=== PATIENT | female | born 1995 | race Caucasian/White ===

== ENCOUNTER 2019-01-25 07:48 | Emergency (ER) | payer MEDICAID, OTHER ==
[2019-01-25 07:55] VITALS: BMI 34.0
[2019-01-25 08:04] VITALS: O2SAT 99
--- NOTE | 2019-01-25 08:27 | ED PDOC ---
Arrival/HPI - General Historian: Patient - History of Present Illness Narrative History of Present Illness (Text): 01/25/19 08:21 CC: Chest Pain and Left Upper Extremity Numbness HPI: 23 yo female w/ no significant past medical history comes to ED for evaluation of chest pain, neck pain, and left upper extremity numbness. Chest pain is reproducible on exam. Patient states the pain feels like stabbing pins in nature, localized to mid chest, denies diaphoresis, nausea, and vomiting. Patient states the pain started two days ago when she walk up from sleep uncomfortably. Patient complains of neck soreness when turning in certain directions. Patient complains of left upper extremity numbness but has motor strength intact although weak. Patient states she thought pain would go away and decided to go to work but pain persisted which is why she decided to come to emergency room. Reports no prior episodes. Took no medications at home for pain. Denies fevers, chills, headaches, lightheadedness, dizziness, constipation or diarrhea, and dyusria. Time/Duration: < week Symptom Onset: Sudden Symptom Course: Unchanged Quality: Stabbing Activities at Onset: Rest Context: Sitting <Melanie Calzada - Last Filed: 01/25/19 09:25> <Jackson Perez DO - Last Filed: 01/25/19 18:20> - General Chief Complaint: Chest Pain Time Seen by Provider: 01/25/19 07:49 Past Medical History - Provider Review Nursing Documentation Reviewed: Yes - Past History Past History: No Previous - Infectious Disease Hx of Infectious Diseases: None - Tetanus Immunization Tetanus Immunization: Up to Date - Past Medical History Past Medical History: No Previous - Cardiac Hx Cardiac Disorders: No - Pulmonary Hx Respiratory Disorders: No - Neurological Hx Neurological Disorder: No - HEENT Hx HEENT Disorder: No - Renal Hx Renal Disorder: No - Endocrine/Metabolic Hx Endocrine Disorders: No - Integumentary Hx Dermatological Disorder: No - Musculoskeletal/Rheumatological Hx Musculoskeletal Disorders: No - Gastrointestinal Hx Gastrointestinal Disorders: No - Genitourinary/Gynecological Hx Genitourinary Disorders: No - Psychiatric Hx Psychophysiologic Disorder: No Hx Post Traumatic Stress Disorder: No Hx Schizophrenia: No Hx Substance Use: No - Past Surgical History Past Surgical History: No Previous - Surgical History Hx Abdominal Aortic Aneurysm Repair: No - Anesthesia Hx Anesthesia: No Hx Anesthesia Reactions: No Hx Malignant Hyperthermia: No - Suicidal Assessment Feels Threatened In Home Enviroment: No <Melanie Calzada - Last Filed: 01/25/19 09:25> Family/Social History Family/Social History: No Known Family HX Smoking Status: Never Smoked Hx Alcohol Use: No Hx Substance Use: No Hx Substance Use Treatment: No <Melanie Calzada - Last Filed: 01/25/19 09:25> Allergies/Home Meds <Melanie Calzada - Last Filed: 01/25/19 09:25> <Jackson Perez DO - Last Filed: 01/25/19 18:20> Allergies/Adverse Reactions: Allergies No Known Allergies Allergy (Verified 01/25/19 07:55) Review of Systems - Review of Systems Constitutional: Normal Eyes: Normal. absent: Vision Changes ENT: Normal Respiratory: Normal. absent: SOB Cardiovascular: Normal, Chest Pain Gastrointestinal: Normal. absent: Abdominal Pain, Stool Changes, Constipation, Diarrhea, Nausea, Vomiting Genitourinary Female: Normal. absent: Dysuria Musculoskeletal: Neck Pain Skin: Normal. absent: Rash Neurological: Normal, Other (LUE numbness). absent: Headache, Dizziness, Facial Droop Endocrine: Normal. absent: Diaphoresis Psychiatric: Normal. absent: Anxiety <Melanie Calzada - Last Filed: 01/25/19 09:25> Physical Exam Vital Signs Reviewed: Yes Vital Signs Temp Pulse Pulse Resp BP Pulse Ox 01/25/19 08:04 70 01/25/19 08:01 98.0 F 75 16 124/105 H 99 Temperature: Afebrile Blood Pressure: Normal Pulse: Regular Respiratory Rate: Normal Appearance: Positive for: Well-Appearing, Non-Toxic, Comfortable. No: Ill-Appearing, Unkept, Uncomfortable Pain Distress: Mild Mental Status: Positive for: Alert and Oriented X 3 - Systems Exam Head: Present: Atraumatic, Normocephalic Pupils: Present: PERRL Extroacular Muscles: Present: EOMI Conjunctiva: Present: Normal Mouth: Present: Moist Mucous Membranes. No: Dry Respiratory/Chest: Present: Clear to Auscultation, Good Air Exchange. No: Respiratory Distress, Accessory Muscle Use, Wheezes, Decreased Breath Sounds Cardiovascular: Present: Regular Rate and Rhythm, Normal S1, S2. No: Murmurs, Irregular Rhythm Abdomen: Present: Normal Bowel Sounds. No: Tenderness, Distention, Rebound, Guarding Upper Extremity: Present: Normal Inspection, Normal ROM, Neurovascularly Intact, Norm 2-Pt Discrimination. No: Cyanosis, Edema, Tenderness, Swelling, Erythema Lower Extremity: Present: Normal Inspection. No: Edema Neurological: Present: GCS=15, CN II-XII Intact, Speech Normal Skin: Present: Warm, Dry, Normal Color. No: Rashes Psychiatric: Present: Alert, Oriented x 3, Normal Insight, Normal Concentration <Melanie Calzada - Last Filed: 01/25/19 09:25> Vital Signs Temp Pulse Pulse Resp BP Pulse Ox 01/25/19 09:09 98.6 F 79 19 127/99 H 99 01/25/19 08:04 70 01/25/19 08:01 98.0 F 75 16 124/105 H 99 <Jackson Perez DO - Last Filed: 01/25/19 18:20> Medical Decision Making ED Course and Treatment: 01/25/19 08:31 Impression: 23 yo female w/ LUE numbness, chest pain, neck pain presents to ED for evalu ation. Plan: IM toradol x 1 EKG Prior Visits: All prior visits and lab work reviewed for this admission Progress Notes: Re-evaluated at bedside. Pain has improved slightly. Instructed to use NSAIDS (ibuprofen or aleve) as needed for symptom control. Followup with PMD within a week of discharge from hospital. 01/25/19 09:01 Re-evaluation Time: 09:00 Reassessment Condition: Re-examined, Improving,but remains with symptoms - EKG Interpretation Interpreted by ED Physician: Yes Type: 12 lead EKG <Melanie Calzada - Last Filed: 01/25/19 09:25> - Medication Orders Current Medication Orders: Discontinued Medications Ketorolac Tromethamine (Toradol) 60 mg IM STAT STA Stop: 01/25/19 08:38 Last Admin: 01/25/19 08:50 Dose: 60 mg [facility] Pain Assessment Document 01/25/19 08:50 [email or web address] (Rec: 01/25/19 08:54 [email or web address] [id number]) Pain Reassessment Is this a pain reassessment? No Sleep Is patient sleeping during reassessment? No Presence of Pain Presence of Pain Yes Pain Scale Used Protocol: PSCALES Pain Scale Used Numeric Location Left, Right or Bilateral Left Pain Location Body Site Chest Arm Description Description Constant Intensity of Pain at present 5 Pain Behavior Facial Grimacing Aggravating Factors Changing Position Alleviating Factors/Management Medication Techniques Alleviating Factors Medication IM Administration Charges Document 01/25/19 08:50 [email or web address] (Rec: 01/25/19 08:54 [email or web address] [id number]) Injection Site MAR Injection Site Right Gluteus Cali Charges for Administration # of IM Administrations 1 <Jackson Perez DO - Last Filed: 01/25/19 18:20> - PA / PUBLIC POLICY MANAGER / Resident Statement [facility] has reviewed & agrees with the documentation as recorded. [facility] has examined the patient and agrees with the treatment plan. <Jackson Perez DO - Last Filed: 01/25/19 18:20> Disposition/Present on Arrival - Present on Arrival Any Indicators Present on Arrival: No History of DVT/PE: No History of Uncontrolled Diabetes: No Urinary Catheter: No History of Decub. Ulcer: No History Surgical Site Infection Following: None - Disposition Have Diagnosis and Disposition been Completed?: Yes Disposition Time: 09:01 Patient Plan: Discharge <Melanie Calzada - Last Filed: 01/25/19 09:25> - Disposition Disposition Time: 08:45 <Jackson Perez DO - Last Filed: 01/25/19 18:20> - Disposition Diagnosis: Acquired torticollis, Musculoskeletal pain Disposition: HOME/ ROUTINE Condition: IMPROVED Discharge Instructions (ExitCare): Muscle and Bone Pain (DC), Torticollis (DC) Additional Instructions: ISABEL GALLARDO, thank you for letting us take care of you today. The emergency medical care you received today was directed at your acute symptoms. If you were prescribed any medication, please fill it and take as directed. It may take several days for your symptoms to resolve. Return to the Emergency Department if your symptoms worsen, do not improve, or if you have any other problems. Please contact your doctor or call one of the physicians/clinics you have been referred to that are listed on the Patient Visit Information form that is included in your discharge packet. Bring any paperwork you were given at discharge with you along with any medications you are taking to your follow up visit. Our treatment cannot replace ongoing medical care by a primary care provider outside of the emergency department. Thank you for allowing the [facility] team to be part of your care today. Follow up with your primary care doctor this week for re-evaluation and further management. Prescriptions: Ibuprofen [Motrin] 600 mg PO Q6 PRN #20 tab PRN Reason: Pain, Moderate (4-7) Referrals: [facility], [Non-Staff] - Follow up with primary Forms: [employer] (Sen[place]alese)
[2019-01-25 09:11] VITALS: PULSE 79; RESP 19
[2019-01-25 09:31] VITALS: BP 127/99; TEMP 98.6
--- NOTE | 2019-01-25 18:37 | CARD ---
APPROVED REPORT Date of service: 01/25/2019 EKG Measurement Heart [id number] <Conclusion> Normal sinus rhythm with sinus arrhythmia Poor R wave progression V1-3. Possibly secondary to lead placemeny Abnormal ECG
== END 2019-01-25 09:10 | disposition home or self-care (01) ==
LOC: ED 07:48
DX: M43.6 Torticollis (principal); M79.18 Myalgia, other site
CPT/HCPCS: 81025; 93005; 96372; 99282; J1885